=== PATIENT | female | born 1975 | race Caucasian/White ===

== ENCOUNTER 2020-08-26 11:09 | Outpatient (REF) | payer OTHER, SELFPAY ==
--- NOTE | ~2020-08-26 | XR_ITS ---
EXAMINATION: XR LUMBOSACRAL SPINE CLINICAL INFORMATION: Low back pain COMPARISON: None TECHNIQUE: Three views of the lumbosacral spine. FINDINGS: Diminutive 12th ribs. 5 nonrib-bearing lumbar type vertebral bodies are present. Vertebral body and disc heights are maintained. No compression fracture seen. Normal sagittal alignment. There may be mild lower lumbar facet arthropathy. XR/XR lumbar spine 2-3V IMPRESSION: No acute osseous abnormality. Possible mild lower lumbar facet arthropathy.
== END 2020-08-26 11:10 | disposition home or self-care (01) ==
LOC: HO.XRAY 11:09
PROVIDERS: PCP Internal Medicine; Visit Provider Physician Assistant
DX: M54.5 Low back pain (principal)
CPT/HCPCS: 72100

== ENCOUNTER 2020-09-12 08:28 | Outpatient (REF) | payer OTHER, SELFPAY ==
--- NOTE | ~2020-09-12 | CT_ITS ---
EXAMINATION: CT LUMBAR SPINE WITHOUT CONTRAST CLINICAL INFORMATION: 45-year-old with low back pain. COMPARISON: None TECHNIQUE: Volumetric CT of the lumbar spine was done from T12 to the sacrum with multiplanar reformatted reconstructions. This CT examination was performed using dose optimization techniques as appropriate, variously including the following: *Automated exposure control *Adjustment of mA and/or kV according to patient size (this includes techniques or standardized protocols for targeted exams where dose is matched to indication/reason for exam; i.e. extremities or head) *Use of iterative reconstruction technique DLP; 465.00 mGy-cm FINDINGS: Slight lower lumbar levocurvature noted. Otherwise, the lumbosacral spine is anatomically aligned. Vertebral body heights are well-maintained. There is no spondylolisthesis or spondylolysis. No fractures or aggressive bone lesions are identified. Incidental note is made of a 3 cm benign vertebral hemangioma within the L2 vertebral body. L5-S1: Moderate to marked loss of disc space height is noted with intradiscal vacuum disc phenomenon consistent with discogenic degenerative change. There is mild diffuse disc bulging with minor paravertebral spondylosis with slight flattening of the dural sac. There is minor bilateral facet arthrosis and there is mild bilateral foraminal stenosis without neural impingement and no significant canal stenosis. L4-L5: Intervertebral disc space height is well maintained with mild diffuse disc bulging and minor paravertebral spondylosis. There is mild flattening of the dural sac slightly asymmetric to the left with a possible superimposed small left subarticular disc protrusion with mild narrowing of the left subarticular zone without significant central spinal canal stenosis. No significant neural foraminal stenosis. L3-L4: Slight loss of Intervertebral disc space height is noted with small Schmorl's nodes noted centrally with no significant disc bulge or herniation. There is minor paravertebral spondylosis without significant facet arthrosis, canal or neuroforaminal stenosis. L2-L3: Intervertebral disc space height is well maintained with minimal disc bulging with minor paravertebral spondylosis with no significant facet arthrosis, canal or neuroforaminal stenosis. L1-L2: Disc space height is well maintained with no significant disc bulge or herniation and no significant spondylosis, facet arthrosis, canal or neuroforaminal stenosis. T12-L1: Disc space height is well maintained with minor anterior marginal endplate spurring with no significant disc bulge or herniation and no significant facet arthrosis, canal or neural foraminal stenosis. Paraspinal/Retroperitoneal: The paravertebral soft tissues appear unremarkable. CT/CT lumbar spine wo con IMPRESSION: 1. Discogenic degenerative changes primarily at L5-S1 as discussed above, with mild disc bulging and minor facet arthrosis with mild bilateral neural foraminal stenosis, right more the left without significant spinal canal stenosis. 2. Disc bulging and a small left subarticular disc protrusion at L4-L5 with mild narrowing of the left subarticular zone and mild paravertebral spondylosis. 3. Mild disc space height loss at L3-L4 with minor paravertebral spondylosis. Minimal disc bulging at L2-L3.
== END 2020-09-12 08:29 | disposition home or self-care (01) ==
LOC: HO.CT 08:28
PROVIDERS: PCP Physician Assistant; Visit Provider Physician Assistant
DX: M54.5 Low back pain (principal)
CPT/HCPCS: 72131

== ENCOUNTER 2023-01-04 09:49 | Outpatient (REF) | payer OTHER, SELFPAY | END 2023-01-04 09:50 | disposition home or self-care (01) | LOC: HO.LAB 09:49 | PROVIDERS: PCP Physician Assistant; Visit Provider Physician Assistant | DX: J35.8 Other chronic diseases of tonsils and adenoids (principal); R53.83 Other fatigue; Z82.49 Family history of ischemic heart disease and other diseases of the circulatory system | CPT/HCPCS: 36415; 80053; 80061; 82525; 82607; 82746; 83090; 83540; 83735; 83970; 84439; 84443; 85025 ==

== ENCOUNTER 2023-03-03 11:11 | Outpatient (REF) | payer OTHER, SELFPAY ==
[2023-03-03 12:04] LABS: Estimated Average Glucose 105 mg/dL; Hemoglobin A1c % 5.3 % (<6.0)
[2023-03-03 12:50] LABS: Iron 78 mcg/dL (30-160); Percent Iron Saturation 26 % (15-50); Total Iron Binding Capacity 298 mcg/dL (228-428); Unsaturated Iron Binding 220 ug/dL
[2023-03-03 13:15] LABS: Carcinoembryonic Antigen < 1.73 ng/mL; TSH reflex Free T4 1.14 uIU/mL (0.32-4.0); Vitamin D 25-OH Total 67.7 ng/mL (>30)
[2023-03-03 13:18] LABS: Folate 16.5 ng/mL (> or = 4.0); Vitamin B12 460 pg/mL (200-900)
[2023-03-04 09:09] LABS: CA 27.29 67 U/mL (<38)
[2023-03-04 10:08] LABS: Carbohydrate Antigen 19-9 26 U/mL (<34)
[2023-03-04 12:13] LABS: Cancer Antigen 15-3 22 U/mL (<32)
[2023-03-04 15:18] LABS: CA-125 11 U/mL (<35)
[2023-03-04 15:47] LABS: Calcium (PTHI) 10.2 mg/dL (8.6-10.2); PTHI 37 pg/mL (16-77)
== END 2023-03-03 11:12 | disposition home or self-care (01) ==
LOC: HO.LAB 11:11
PROVIDERS: PCP Physician Assistant; Visit Provider Physician Assistant
DX: C50.112 Malignant neoplasm of central portion of left female breast (principal); R53.83 Other fatigue
CPT/HCPCS: 36415; 82306; 82378; 82607; 82746; 83036; 83540; 83970; 84443; 86300; 86301; 86304

== ENCOUNTER 2023-04-02 07:31 | Outpatient (REF) | payer OTHER, SELFPAY ==
--- NOTE | ~2023-04-02 | CT_ITS ---
EXAMINATION: CT HEAD WITHOUT CONTRAST CLINICAL INFORMATION: Headaches. COMPARISON: Prior head CT from 10/20/2014. TECHNIQUE: Contiguous axial imaging was performed from the skullbase to vertex without intravenous administration of contrast. This CT examination was performed using dose optimization techniques as appropriate, variously including the following: *Automated exposure control *Adjustment of mA and/or kV according to patient size (this includes techniques or standardized protocols for targeted exams where dose is matched to indication/reason for exam; i.e. extremities or head) *Use of iterative reconstruction technique DLP: 704 mGy-cm. FINDINGS: There is no evidence of acute intracranial hemorrhage or territorial infarction. No abnormal mass effect or midline shift is seen. Brunson to white matter differentiation is well preserved. No extra-axial fluid collections are identified. The ventricles are normal in size. There is no abnormal attenuation within the brain parenchyma. The osseous structures and soft tissues are normal. The mastoid air cells and visualized portions of the paranasal sinuses are well aerated. CT/CT head/brain wo IV con IMPRESSION: No acute intracranial pathology.
[2023-04-02 08:42] LABS: Rheumatoid Factor < 13.0 IU/mL (<15.0)
[2023-04-02 08:43] LABS: C Reactive Protein 0.24 mg/dL (< or = 0.50); Magnesium 1.9 mg/dL (1.6-2.6); Phosphorus 2.8 mg/dL (2.7-4.5)
[2023-04-02 08:57] LABS: Erythrocyte Sedimentation Rate 16 MM/HR (0-20)
[2023-04-05 15:48] LABS: Cyclic Citrullinated Peptide <16 UNITS
[2023-04-06 01:58] LABS: Calcium, Ionized 5.3 mg/dL (4.7-5.5)
[2023-04-06 13:43] LABS: Anti DNA DS Antibody 1 IU/mL; Antibody to SS-A Antigen <1.0 NEG AI (<1.0 NEG); Antibody to SS-B Antigen <1.0 NEG AI (<1.0 NEG)
[2023-04-06 14:43] LABS: Anti Nuclear Antibody Screen NEGATIVE (NEGATIVE)
== END 2023-04-02 07:32 | disposition home or self-care (01) ==
LOC: HO.CT 07:31
PROVIDERS: PCP Physician Assistant; Visit Provider Physician Assistant
DX: R51.0 Headache with orthostatic component, not elsewhere classified (principal); R53.83 Other fatigue; E83.52 Hypercalcemia
CPT/HCPCS: 36415; 70450; 82330; 83735; 84100; 85652; 86038; 86140; 86200; 86225; 86235; 86431

== ENCOUNTER 2023-04-26 15:12 | Outpatient (REF) | payer OTHER, SELFPAY ==
--- NOTE | ~2023-04-26 | US_ITS ---
EXAMINATION: US PELVIS LIMITED (BLADDER) CLINICAL INFORMATION: Dysuria. COMPARISON: None available. TECHNIQUE: Real-time imaging of the bladder. FINDINGS: BLADDER: Well distended and normal. Bilateral ureteral jets are demonstrated. Prevoid bladder volume is 382 mL. Postvoid bladder volume is 8.3 mL. US/US bladder IMPRESSION: No significant post void residual volume. No discrete focal urinary bladder abnormality.
--- NOTE | ~2023-04-26 | US_ITS ---
EXAMINATION: US THYROID CLINICAL INFORMATION: Nontoxic thyroid nodule. COMPARISON: None available. TECHNIQUE: Linear transducer grayscale and color Doppler examination with attention to the region of the thyroid. FINDINGS: SIZE: Measurements of the thyroid lobes and nodules are given in sagittal, anteroposterior and transverse dimensions respectively. Right Thyroid Lobe: 5.0 x 1.7 x 1.7 cm, volume 7.8 mL. Parenchyma: The gland echotexture is homogeneous. Thyroid vascularity is normal. Left Thyroid Lobe: 4.5 x 1.4 x 1.5 cm, volume 4.9 mL. Parenchyma: The gland echotexture is homogeneous. Thyroid vascularity is normal. Isthmus: 0.4 cm in maximum AP dimension. Estimated total number of nodules greater than or equal to 1 cm: 1. Quantitative Researcher nodules are described as follows: 1. Location: Right superior. Size: 0.5 x 0.2 x 0.5 cm, volume 0.03 mL. Nodule characteristics: Composition: Solid (2). Echogenicity: Hypoechoic (2). Shape: Not taller than wide (0). Margins: Ill-defined (0). Echogenic Foci: None (0). ACR TI-RADS total points: 4 ACR TI-RADS category: 4 2. Location: Left inferior. Size: 1.8 x 1.0 x 1.4 cm, volume 1.3 mL. Nodule characteristics: Composition: Solid (2). Echogenicity: Isoechoic (1). Shape: Not taller than wide (0). Margins: Smooth (0). Echogenic Foci: None (0). ACR TI-RADS total points: 3 ACR TI-RADS category: 3 NODES: No lymphadenopathy is seen in the tissue surrounding the thyroid gland. US/US thyroid IMPRESSION: Normal size, vascularity and echogenicity of the thyroid parenchyma. There is a 1.8 cm TR 3 left lower thyroid nodule; recommend follow-up ultrasound in one year. Additional 0.5 cm TR 4 right upper pole nodule, does not meet size criteria for further evaluation. ACR TI-RADS RECOMMENDATION REFERENCE: Ultrasound-guided fine-needle aspiration, followup ultrasound, no further follow up. * TR1 (0 point) and TR2 (2 points): No FNA or follow up. * TR3 (3 points): FNA if more than or equal to 2.5 cm in maximum dimension, followup ultrasound in 1, 3 and 5 years if 1.5 to 2.4 cm in maximum dimension. * TR4 (4-6 points): FNA if more than or equal to 1.5 cm in maximum dimension, followup ultrasound in 1, 2, 3 and 5 years if 1 to 1.4 cm in maximum dimension. * TR5 (more than or equal to 7 points): FNA if more than or equal to 1 cm in maximum dimension, followup ultrasound every year for 5 years if 0.5 to 0.9 cm in maximum dimension. * TR3, TR4 or TR5 nodules that are below the size threshold for followup receive no follow up.
== END 2023-04-26 15:13 | disposition home or self-care (01) ==
LOC: HO.US 15:12
PROVIDERS: PCP Physician Assistant; Visit Provider Physician Assistant
DX: E04.1 Nontoxic single thyroid nodule (principal); R30.0 Dysuria
CPT/HCPCS: 76536; 76857

== ENCOUNTER 2023-07-29 07:00 | Outpatient (REF) | payer OTHER, SELFPAY ==
[2023-07-29 08:06] LABS: Alanine Aminotransferase 25 U/L (0-31); Albumin Level 4.1 g/dL (3.5-5.0); Alkaline Phosphatase 65 U/L (39-117); Anion Gap 12 (12-20); Aspartate Amino Transferase 25 U/L (5-31); Bilirubin Total 0.6 mg/dL (0.0-1.0); Blood Urea Nitrogen 13 mg/dL (9-16); Calcium 10.1 mg/dL (8.4-10.2); Carbon Dioxide 28 mmol/L (22-29); Chloride 106 mmol/L (96-108); Cholesterol 244 mg/dL (<200); Estimated Glomerular Filt Rate > 60; Glucose Random 96 mg/dL (60-115); HDL Cholesterol 66 mg/dL (>40); LDL Cholesterol Calculated 167 mg/dL (<100); Potassium 3.9 mmol/L (3.3-5.1); Sodium 142 mmol/L (135-145); Total Protein 7.7 g/dL (6.5-8.0); Triglycerides 57 mg/dL (<150)
[2023-07-29 08:28] LABS: Cortisol Random 7.9 ug/dL
[2023-07-29 08:29] LABS: Thyroid Stimulating Hormone 1.08 uIU/mL (0.32-4.0); Vitamin D 25-OH Total 45.5 ng/mL (>30)
[2023-07-30 11:59] LABS: Thyroid Peroxidase Antibodies 1 IU/mL (<9)
[2023-07-30 12:38] LABS: EBV-VCA IgG Ab >750.00 U/mL; EBV-VCA IgM Ab <36.00 U/mL
[2023-07-30 20:04] LABS: Triiodothyronine T3 Free 3.4 pg/mL (2.3-4.2); Triiodothyronine T3 Total 110 ng/dL (76-181)
[2023-08-02 11:03] LABS: Iodine, Serum/Plasma 60 mcg/L (52-109)
[2023-08-04 22:43] LABS: Estrone 15 pg/mL
== END 2023-07-29 07:01 | disposition home or self-care (01) ==
LOC: HO.LAB 07:00
PROVIDERS: Visit Provider Preventive Medicine Public Health & General Preventive Medicine
DX: R78.9 Finding of unspecified substance, not normally found in blood (principal); R53.83 Other fatigue; E78.5 Hyperlipidemia, unspecified; B37.82 Candidal enteritis; C50.919 Malignant neoplasm of unspecified site of unspecified female breast
CPT/HCPCS: 80053; 80061; 82306; 82533; 82679; 83090; 83789; 84443; 84480; 84481; 86376; 86628; 86664; 86665

== ENCOUNTER 2024-06-05 15:23 | Outpatient (REF) | payer OTHER, SELFPAY ==
--- NOTE | ~2024-06-05 | XR_ITS ---
EXAMINATION: XR CHEST CLINICAL INFORMATION: ACUTE BRONCHITIS COMPARISON: None available. TECHNIQUE: 2 views of the chest were obtained. FINDINGS: The cardiac silhouette is normal. There is mild diffuse bronchial wall thickening. There are no areas of consolidation. There are no pleural effusions or pneumothoraces. Multiple surgical clips throughout the chest wall. XR/XR chest 2V IMPRESSION: Bronchial wall thickening may be infectious and/or inflammatory in etiology. Electronically signed by: Lauren Serrato MD 06/05/2024 04:18 PM [facility]
== END 2024-06-05 15:24 | disposition home or self-care (01) ==
LOC: HO.XRAY 15:23
PROVIDERS: PCP Internal Medicine; Visit Provider Physician Assistant
DX: J20.9 Acute bronchitis, unspecified (principal)
CPT/HCPCS: 71046

== ENCOUNTER 2024-06-23 11:24 | Outpatient (REF) | payer OTHER, SELFPAY ==
--- NOTE | ~2024-06-23 | XR_ITS ---
EXAMINATION: XR ANKLE, RIGHT CLINICAL INFORMATION: PAIN IN RIGHT ANKLE AND JOINTS OF RT FOOT COMPARISON: None available. TECHNIQUE: AP, lateral, and mortise views of the right ankle. FINDINGS: No fracture. Alignment is anatomic. No erosions. Joint spaces are maintained. Soft tissues are normal. XR/XR ankle RT min 3V IMPRESSION: Normal right ankle. Electronically signed by: Chris Wing MD 06/25/2024 10:33 AM VERNON
--- OUTSIDE RECORDS SUMMARY | 2024-06-23 11:28 | XMS_ITS | Data Portability ---
Author Organization [facility] Service Address [address] [place] [address] Assessment Encounter Date Assessment Date Assessment LastModified by Organization Details LastModified Time 12/21/2022 12/21/2022 wants mthfr testing done will look into it [email or web address] Not available 12/21/2022 15:23:01 08/03/2023 08/03/2023 Patient agreed and verbally consents to this audio and video Telehealth appt via a secure platform [email or web address] Not available 08/03/2023 14:55:33 Plan of Treatment Reminders Order Date Submit Date Provider Last Modified By Organization Details Last Modified Time Details Appointments None recorded. Lab lipid panel, serum 2022 023 [facility], [address] [place] [address], [address], 3 11:44:09 CMP, serum or plasma 2022 023 [facility], [address] [place] [address], [address], 3 11:44:08 mthfr (methylene tetrahydro folate reductase) mutation, blood/tiss ue 2022 023 [facility], [address] [place] [address], 27[address], 3 11:38:21 copper, red blood cells 2022 023 [facility], [address] [place] [address], [address], 3 11:38:21 magnesium, RBC 2022 023 [facility], [address] [place] [address], [address], 3 15:35:22 PTH (parathyro id hormone), intact + calcium, serum or plasma 2022 023 [facility], [address] [place] [address], [address], 3 11:14:27 TSH + free T4, serum 2022 023 [facility], [address] [place] [address], [address], 3 11:44:09 vitamin B12 + folate, serum or blood 2022 023 [facility], [address] [place] [address], [address], 3 11:20:41 iron + TIBC + ferritin, serum 2022 023 [facility], [address] [place] [address], [address], 3 15:35:23 CBC w/ auto diff 2022 023 [facility], [address] [place] [address], 43[address], 3 15:35:23 homocystei ne, serum or plasma 2022 023 [facility], [address] [place] [address], [address], 3 15:35:22 ca 125, serum 2022 023 [facility], [address] [place] [address], [place], [address], 3 14:00:53 ca 15-3, serum 2022 023 [facility], [address] [place] [address], [address], 3 14:00:53 ca 27-29, serum or plasma 2022 023 [facility], [address] [place] [address], [address], 3 14:00:53 cancer Ag 19-9, serum or plasma 2022 023 [facility], [address] [place] [address], [address], 3 14:00:53 carcinoemb ryonic Ag, quant, serum or plasma 2022 023 [facility], [address] [place] [address], [place], [address], 3 14:00:53 calcium, ionized, blood 2022 023 [facility] Testing, [address], [place], [address], 3 12:06:12 phosphorus , serum or plasma 2022 023 [facility] Testing, [address], [place], [address], 3 17:05:27 magnesium, serum or plasma 2022 023 [facility] Testing, [address], [place], [address], 3 17:05:26 dsDNA Ab, serum 2022 023 [facility], [address], [place], [address], 3 17:00:56 anti-dsdna Ab, serum, reflex confirmati on 2022 023 [facility], [address], [place], [address], 3 17:00:56 ccp (cyclic citrullina gaurav peptide) igg, serum 2022 023 [facility], [address], [place], [address], 3 17:00:56 NGOC + rf (antinucle ar antibodies + rheumatoid factor), quantitati ve, serum 2022 023 [facility], [address], [place], [address], 3 12:17:45 sjogren antibody panel (ssa, ssb, ro, la), serum 2022 023 [facility], [address], [place], [address], 3 17:00:56 ESR (erythrocy te sedimentat ion rate), blood 2022 023 [facility] [address] [facility], [address], [place], [address], 3 17:00:56 C-reactive protein, quantitati ve, serum or plasma 2022 023 [facility] [address] [facility], [address], [place], [address], 3 17:00:56 Referral None recorded. Procedures None recorded. Surgeries None recorded. Imaging MAMMO, diagnostic , digital, bilateral - OUQ 1 o'clock left breast, acute developmen t of breast lump, ordered US as well 2020 021 hrubner Not available 1 08:20:29 US, breast, unilateral - OUQ 1 oclock left breast, mammogram ordered separately 2020 021 [email or web address] Not available 08:18:19 US, bladder 2022 023 [facility] Scheduling, [address] [place], [address], 3 08:47:52 CT, head + brain, w/o contrast 2022 023 [facility], [address] [place], [address], 3 08:47:52 Medication Orders alprazolam 0.5 mg tablet 2020 021 [facility] #2071, [address] [place], [address], 1 10:57:16 chlorhexid ine gluconate 0.12 % mouthwash 2022 023 [email or web address], [address] [place], [address], 3 13:45:03 clindamyci n HCl 300 mg capsule 2022 023 marya [facility], [address] [place], [address], 3 13:34:49 chlorhexid ine gluconate 0.12 % mouthwash 2022 023 [facility]2071, [address] [place], [address], 3 13:46:44 alprazolam 0.5 mg tablet 2022 023 [facility]20[facility], [address] [place], [address], 3 13:45:40 hydroxyzin e HCl 10 mg tablet 2023 024 [facility]2071, [address] [place], [address], 4 13:58:42 alprazolam 0.5 mg tablet 2023 024 [facility]2071, [address] [place], [address], 4 13:58:42 Patient TargetsNo targets recorded. Patient InstructionsNo instructions recorded. Reason for Referral None Reported. Results Created Date Observation Date Name Description Value Unit Range Abnormal Flag Note LastModifiedBy Organization Detail LastModifiedTime 12/17/19 21 12/16/2020 johny STUBBS unila teral No observ ation record ed. [facility] [address] [place], [address], 12/17/2020 09:53:34 12/20/19 21 12/16/2020 MAMMO , madisone devyn, digit al, bilat eral No observ ation record ed. [facility] [address] [place], [address], 12/20/2020 09:00:18 12/21/19 21 12/20/2020 johny fonseca (PROC ) No observ ation record ed. [facility] [address] [facility] [address], [place], [address], 12/20/2020 12:28:01 04/02/20 23 04/02/2023 CT, head + brain , w/o contr ast No observ ation record ed. [facility] (Medical Records) [address] [place], [address], 04/06/2023 11:49:09 04/02/20 23 02/25/2023 CT, abdom en + pelvi s, w/o contr ast No observ ation record ed. [email or web address] [facility] [address], [place], [address], 04/02/2023 16:15:16 04/28/20 23 04/26/2023 US, bladd er No observ ation record ed. [facility] (Medical Records) [address] [place], [address], 04/30/2023 10:09:10 04/28/20 23 04/26/2023 US, thyro id No observ ation record ed. [facility] [address] [place], [address], 2023 16:23:55 06/05/20 24 06/05/2024 XR, chest , 2 view No observ ation record ed. [facility] (Medical Records) [address] [place], [address], 06/06/2024 14:33:42 Result Notes None recorded. 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 PADMAJA HOLDEN [address] [place], [address], [facility] 3 15:18:42 Malignan t tumor of breast 520873711 Active 2022 PADMAJA HOLDEN [address] [place], [address], [facility] 3 15:26:01 Fatigue 26978802 Active 2022 PADMAJA HOLDEN [address] [place], [address], [facility] 3 15:26:53 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 189476253 Active 2022 monitorin g PADMAJA HOLDEN [address] [place], [address], [facility] 3 13:55:30 Panic attack 246295965 Active 2022 PADMAJA HOLDEN [address] [place] [address], [address], [facility] 3 13:46:19 Headache 31516864 Active 2022 PADMAJA HOLDEN [address] [place] [address], [address], [facility] 3 16:40:11 Dysuria 89643042 Active 2022 PADMAJA HOLDEN [address] [place] [address], [address], [facility] 3 16:54:15 Hypercal cemia 38057314 Active 2022 PADMAJA HOLDEN [address] [place] [address], [address], [facility] 3 17:01:09 Thyroid nodule 053346776 Active 2022 PADMAJA HOLDEN [address] [place] [address], [address], [facility] 3 11:50:01 Acute conjunct ivitis 91718607 Active 2023 Felipe Torre DO [address] [place], [address], [facility] 4 10:05:17 Acute bronchit is 49212271 Active 2023 PADMAJA HOLDEN [address] [place], [address], [facility] 4 12:18:06 Acute urinary tract infectio n 865975623 Active 2023 PADMAJA HOLDEN [address] [place], [address], [facility] 4 11:38:44 Pain of right ankle joint 59822617886 180924 Active 2023 PADMAJA HOLDEN [address] [place], [address], [facility] 4 11:02:01 Problem Notes None recorded. Procedures Surgical History None recorded. Imaging Results Imaging Date Name Status LastModified by Organiz ation Details LastModified Time 12/16/2020 US, breast, unilateral completed [facility] [address] [place], [address], 12/17/2020 09:53:34 12/16/2020 MAMMO, screening, digital, bilateral completed [facility] [address] [place], [address], 12/20/2020 09:00:18 12/20/2020 biopsy, breast (PROC) completed [facility] [address], [address], 12/20/2020 12:28:01 04/02/2023 CT, head + brain, w/o contrast completed [facility] (Medical Records) [address] [place], [address], 04/06/2023 11:49:09 02/25/2023 CT, abdomen + pelvis, w[facility] [address] [place] [address], [address], 04/02/2023 16:15:16 04/26/2023 US, bladder completed [facility] (Medical Records) [address] [place], [address], 04/30/2023 10:09:10 04/26/2023 US, thyroid completed davon [facility] (Medical Records) [address] [place], [address], 2023 16:23:55 06/05/2024 XR, chest, 2 view completed [facility]a [facility] (Medical Records) [address] [place], [address], 06/06/2024 14:33:42 Procedure Notes None recorded. Medical Equipment None Reported. Allergies Allergen ID Allergen Name Allergen Category Reaction Reaction Severity Criticality Documentation Date Start Date Code Code System Note Provider Name and Address Organization Details Recorded Time 2657 Medicinal product containin g penicilli n and acting as antibacte rial agent (product) medicatio n Not available Not available Not available 07/11/2018 49361 05 SNOMED Kesha Abner jones [facility] 9 13:59:31 7294 clindamyc in Not available myalgias (muscle pain) Not available Not available 03/23/2023 2582 RxNorm Jacob jones [facility] 3 16:33:21 Medications Name Sig Start Date Stop Date Status Note LastModified by Organization Details LastModified Time anastrozole 1 mg tablet 01/13 completed Not Available Not Available Not Available clindamycin HCl 300 mg capsule TAKE 1 CAPSULE BY MOUTH EVERY 6 HOURS FOR 7 DAYS 01/13 completed Not Available Not Available Not Available Zithromax Z-Trip 250 mg tablet TAKE 2 TABLETS (500 MG) BY ORAL ROUTE ONCE DAILY FOR 1 DAY THEN 1 TABLET (250 MG) BY ORAL ROUTE ONCE DAILY FOR 4 DAYS 2023 active Not Available Not Available Not Avai lable ciprofloxac in 500 mg tablet Take 1 tablet every 12 hours by oral route for 10 days. active Not Available Not Available No t Available triamcinolo ne acetonide 0.1 % topical cream APPLY TO AFFECTED AREA TOPICALLY TWICE A DAY 01/13 completed Not Available Not Available Not Available lidocaine-p rilocaine 2.5 %-2.5 % topical cream APPLY TOPICALLY ONCE FOR 1 DOSE. 01/13 completed Not Available Not Available Not Available alprazolam 0.5 mg tablet TAKE 1 TABLET BY MOUTH THREE TIMES A DAY NEEDED FOR 30 DAYS active Not Available Not Available No t Available lorazepam 0.5 mg tablet TAKE 1 TABLET BY MOUTH EVERY DAY NEEDED NEEDS OFFICE VISIT 11/22 completed Not Available Not Available Not Available neomycin-po lymyxin-dex ameth 3.5 mg/mL-10,00 0 unit/mL-0.1 % eye drops INSTILL 1 DROP INTO AFFECTED EYE(S) BY OPHTHALMI C ROUTE EVERY 3-4 HOURS active Not Available Not Available No t Available fluoxetine 10 mg capsule TAKE 1 CAPSULE BY MOUTH EVERY DAY 01/13 completed Not Available Not Available Not Available diclofenac sodium 75 mg tablet,rissa yed release TAKE 1 TABLET TWICE A DAY BY ORAL ROUTE WITH MEALS FOR 15 DAYS. 11/22 completed Not Available Not Available Not Available letrozole 2.5 mg tablet TAKE 1 TABLET BY MOUTH EVERY DAY 01/13 completed Not Available Not Available Not Available hydroxyzine HCl 10 mg tablet TAKE 1 TABLET 3 TIMES A DAY BY ORAL ROUTE NEEDED FOR 30 DAYS, FOR PANIC ATTACK. 2023 active Not Available Not Available Not Avai lable oxycodone 5 mg tablet TAKE 1 TAB BY MOUTH EVERY 6 HOURS NEEDED MAY REQUEST PARTIAL FILL. DO NOT DRIVE OR DRINK ALCOHOL 01/13 completed Not Available Not Available Not Available chlorhexidi ne gluconate 0.12 % mouthwash Place 15 mL twice a day by mucous membrane route as needed. 2022 active Not Available Not Available Not Avai lable Motrin 08/26 completed Not Available Not Available Not Available sodium fluoride 1.1 % dental paste BRUSH YOUR TEETH 4 TIMES A DAY USING TOOTHPAST E 11/22 completed Not Available Not Available Not Available Eliquis 5 mg tablet TAKE 1 TABLET BY MOUTH TWICE A DAY 01/13 completed Not Available Not Available Not Available Vitals Date Recorded Body height Body mass index (BMI) Body weight Oxygen saturation Oxygen saturation in Arterial blood by Pulse oximetry Heart rate Systolic blood pressure Diastolic blood pressure Provider Name and Address Organization Details Last Updated DateTime 1 167.64 cm 28.9 kg/m2 02499.0 3 g 98 % 98 % 62 /min 120 mm[Hg] 72 mm[Hg] Madison Adkinsrich [facility] 1 10:41:58 Date Recorded Body height Body mass index (BMI) Body weight Heart rate Oxygen saturation Oxygen saturation in Arterial blood by Pulse oximetry Systolic blood pressure Diastolic blood pressure Provider Name and Address Organization Details Last Updated DateTime 3 167.64 cm 28.9 kg/m2 99344.0 3 g 66 /min 99 % 99 % 124 mm[Hg] 72 mm[Hg] Diane Sly [facility] 3 14:57:36 Date Recorded Body height Body mass index (BMI) Body weight Heart rate Oxygen saturation Oxygen saturation in Arterial blood by Pulse oximetry Systolic blood pressure Diastolic blood pressure Provider Name and Address Organization Details Last Updated DateTime 3 167.64 cm 25.8 kg/m2 07811.7 8 g 68 /min 99 % 99 % 128 mm[Hg] 68 mm[Hg] [facility] 3 13:37:23 Date Recorded Body height Body mass index (BMI) Body weight Heart rate Oxygen saturation Oxygen saturation in Arterial blood by Pulse oximetry Systolic blood pressure Diastolic blood pressure Provider Name and Address Organization Details Last Updated DateTime 3 167.64 cm 26.8 kg/m2 61318.3 3 g 66 /min 98 % 98 % 105 mm[Hg] 68 mm[Hg] Alyssa James [facility] 3 16:35:26 Social History Question Answer Notes LastModified by Organizat ion Details LastModified Time Tobacco Smoking Status Never Smoker Not Available [employer] 05/07/2020 03:36:23 What Was The Date Of Your Most Recent Tobacco Screening? 03/23/2023 [email or web address] Information not available 03/23/2023 Sex: Unknown Functional Status None recorded. Mental Status None recorded. Family History Relationship Description Onset Age of this Age Resolved Age Notes LastModified by Organization Details LastModified Time Mother Type 2 diabetes mellitus [email or web address] Not available 10/09 15:39:58 Mother Carotid atherosclero sis [email or web address] Not available 10/09 15:40:10 Mother Cerebrovascu lar accident [email or web address] Not available 15:40:31 Mother Myocardial infarction 56 [email or web address] Not available 01/2020 15:41:53 Mother Deep venous thrombosis [email or web address] Not available 01/2020 15:42:51 Maternal Aunt Myocardial infarction 56 [email or web address] Not available 01/2020 15:42:05 Father Pulmonary embolism [email or web address] Not available 10/09 15:42:30 Medical History No medical history recorded. Gynecological History Statement/Question Response Date of LMP Obstetrics History GPAL:G 0 P 0 0 0 0 Immunizations Vaccine Type Date Status Note Provider Nam e and Address Organization Details Recorded Time Tdap 07/05/2016 completed Not Available [employer] 08/04/2023 12:48:09 Past Encounters Encounter ID Performer Location Encounter Start Date Encounter Closed Date Diagnosis/Indication Diagnosis SNOMED-CT Code Diagnosis ICD10 Code [id number] Lillie Block NP, S [facility] [address] [facility] [place] [address] 07/11/2018 13:54:30 07/11/2018 16:11:50 Chest pain 41300815 R07.9 [id number] [facility] [address] [facility] [place] [address] 07/17/2019 11:24:59 07/17/2019 11:56:45 Anxiety 85283810 F41.9 Depressive disorder 3548 9007 F32.9 Adult [facility] th examination 243431858 Z00.00 Deficiency of vitamin D3 610575311 E55.9 [id number] Rachel [facility] [address] [facility] [place] [address] 10/10/2019 15:30:01 10/10/2019 16:17:24 Adult health examination 828265087 Z00.00 Family his tory of blood coagulation disorder 4619063949 93231 Z83.2 Menopausal syndrome 1237 68287 N95.9 Anxiety 71703104 F41.9 [id number] PADMAJA HOLDEN [facility] [address] [place] [address],[place] [address] 11/28/2019 08:12:43 11/28/2019 11:12:39 Headache 30598418 R51 Cough 50318844 R05 Tight chest 01728535 R07 .89 Dyspnea on exertion 6084 5006 R06.09 [id number] PADMAJA HOLDEN [facility] [address] [place] [address],[place] [address] 08/26/2020 09:47:24 08/26/2020 14:34:49 Low back pain 562291724 M54.5 [id number] [facility] [address] [place] [address],[address] [facility] [place] [address] 11/22/2020 10:33:15 11/22/2020 13:50:48 Mass of left breast 5313545583 4166430 N63.21 Panic attack 410516779 F 41.0 [id number] PADMAJA HOLDEN [facility] [address] [place] [address],[place] [address] 12/21/2022 14:42:44 12/21/2022 16:07:08 Acute tonsillitis 09941393 J03.01 Amygdalolith 6175401 J35 .8 Malignant tumor of breast 453438335 C50.112 Fatigue 84322171 R53.83 Family his tory of Cardiovascular disease 580399720 Z82.49 [id number] PADMAJA HOLDEN [facility] [address] [place] [address],[place] [address] 01/13/2023 13:29:46 01/13/2023 15:57:28 Active or passive immunization 384113252 Z23 Adult [facility] th examination 595065710 Z00.00 Panic attack 062932461 F 41.0 Amygdalolith 3176935 J35 .8 Malignant tumor of breast 137494497 C50.112 [id number] PADMAJA HOLDEN [facility] [address] [place] [address],[place] [address] 03/23/2023 16:09:54 03/24/2023 09:27:35 Malignant tumor of breast 923632030 C50.112 Headache 17878475 R51.0 Fatigue 87519528 R53.83 Dysuria 98476423 R30.0 Hypercalcemia 26038954 E 83.52 [id number] PADMAJA HOLDEN [facility] [address] [facility],[place] [address] 08/03/2023 12:11:38 08/03/2023 16:35:19 Panic attack 050316162 F41.0 Malignant tumor of breast 037623003 C50.112 Health Concerns Section Related Observation LastModified by Organization Detai ls LastModified Time None Recorded Concern Status LastModified by Organization Details LastModified Time None Recorded Advance Directives Directive None Recorded Payers Encounter Date Sequence Insurance Name Policy Number Policy Gonzales Covered Member ID Gonzales Member ID Guarantor Name 11/22/2020 1 [facility] [employer] [id number] 1 María Holloway Kimo [id number] María Kimo 12/21/2022 1 [facility] [employer] [id number] 1 María Holloway Kimo [id number] María Kimo 01/13/2023 1 [facility] [employer] [id number] 1 María Holloway Kimo [id number] María Kimo 03/23/2023 1 [facility] [employer] [id number] 1 María Holloway Kimo [id number] María Kimo 08/03/2023 1 [facility] [employer] [id number] 1 María Holloway Kimo [id number] María Rolonndell Notes Date Note Type Note Provider Name a ks Address Organization Details Recorded Time text/html Breast MassReported bypatient.Location:le ft; upper outer quadrant Onset/Timin-7 days Quality:size 1.5 cm; asymptomatic Context:performs breast self examination; 0 prior biopsies; history of estrogen use Associated Symptoms:no fever; no skin redness; no nipple discharge; no breast swelling; no arm pain; no arm swelling; no chest pain FU left breast mass PADMAJA HOLDEN [address] [place], [address], [facility] 11/22/2020 11:02:55 3 text/html c/o tonsil stones the patient reports she has been producing more tonsil stones since going through chemo possible complication post chemo which has been known to happenoral hygiene is excellent, nothing thereno other exogenous sources of calcium already needed BW for her fu appt and suggestions from specialistsalso want to check her parathryoid and see if that is causing the issues pt agrees to planwill see her soon for regular fu PADMAJA HOLDEN [address] [place], [address], [facility] 12/21/2022 15:34:01 3 text/html Annual WellnessReported bypatient.Diet and Nutrition:healthy diet; discussed vitamin and supplement use; discussed portion control; discussed maintaining calcium balance; discussed diet improvement Fracture Risk:no history of fractures; no recent explained fracture; no sudden unexplained fractures; no previous musculoskeletal injuries Physical Activity:exercises on a regular basis; recent increase in physical activity; good physical condition Depression Risk:never feels sad, empty, or tearful; no loss of interest in activities; no significant changes in weight; no sleep disturbances or insomnia; no agitation; no loss of energy; no feelings of worthlessness or guilt; no thoughts of suicide; no history of depression; no history of mood disorders Hearing:no loss of hearing Vision:no vision problems PADMAJA HOLDEN [address] [place], [address], [facility] 01/13/2023 14:11:03 3 text/html f/u lab work reviewed the lab work with the patient discussed stopping the tincturescould be causing dehydrationalso suggested adding electrolytes to her diet as well but will also need more bw to determine if the urinary issues, fatigue, excess calcium is being cause by complications from her chemo or an autoimmune disorder that developed due to chemo rechecking her calcium also doing an US bladder since it can check the uteter jets and flow of urine agreed to CT head, was not checked with PET scan and she has been having more headaches recentlycould be related to dehydration PADMAJA HOLDEN [address] [place], [address], [facility] 03/24/2023 09:21:12 4 text/html c/o anxiety The patient is participating in this appointment via telemedicine communication with a phone call/video calling service (Converser)The patient consents to use of these platforms in place of an in-person appointment due to either sick symptoms the patient is presenting with or current office closure due to COVID exposure in order to keep our office staff and patients safe the patient is having increased anxietythe patient has been on light duty, the patient reports that work is trying to take her off light dutythe patient reports that she is still actively getting treatments due to her breast cancer, getting bone infusions (patient is on zometa infections) every 6 mos still currently treat with anastrozole as well for the breast cancer note written for lowell piña paperwork for patient adjusted medications, will let me know how it is doing PADMAJA HOLDEN [address] [place], [address], [facility] 08/03/2023 14:55:50 OBGyn Episode No OBEpisode recorded.
== END 2024-06-23 11:25 | disposition home or self-care (01) ==
LOC: HO.XRAY 11:24
PROVIDERS: PCP Physician Assistant; Visit Provider Physician Assistant
DX: M25.571 Pain in right ankle and joints of right foot (principal)
CPT/HCPCS: 73610

== ENCOUNTER 2024-10-19 16:41 | Outpatient (REF) | payer OTHER, SELFPAY ==
--- OUTSIDE RECORDS SUMMARY | 2024-10-19 18:26 | XMS_ITS | Data Portability ---
Author Organization [facility], Home Service Address [address] [place] [address] Assessment Encounter Date Assessment Date Assessment LastModified by Organization Details LastModified Time 12/21/2022 12/21/2022 wants mthfr testing done will look into it [email or web address] Not available 12/21/2022 15:23:01 08/03/2023 08/03/2023 Patient agreed and verbally consents to this audio and video Telehealth appt via a secure platform [email or web address] Not available 08/03/2023 14:55:33 06/30/2024 06/30/2024 Patient agreed and verbally consents to this audio and video Telehealth appt via a secure platform [email or web address] Not available 06/30/2024 14:21:01 Plan of Treatment Reminders Order Date Submit Date Provider Last Modified By Organization Details Last Modified Time Details Appointments NEW PROBLEM 15 2024 03:45P M PADMAJA HOLDEN Not available Not available Not available [facility], ionized, [facility] [address] [place] [facility] [place], [address], 04/06/2023 12:06:12 phosphoru s, serum or plasma 2022 023 [facility], [address], [place], [address], 03/23/2023 17:05:27 magnesium , serum or plasma [facility] [address] , [place], [address], 03/23/2023 17:05:26 dsDNA Ab, serum 2022 023 [place] [address] Testing, [address], [place], [address], 03/23/2023 17:00:56 anti-dsdn a Ab, serum, reflex confirmat ion 2022 023 [facility], [address] [place], [address], 03/23/2023 17:00:56 ccp (cyclic citrullin ated peptide) igg, serum 2022 023 [place] [address] Testing, [address] [place], [address], 03/23/2023 17:00:56 NGOC + rf (antinucl ear antibodie s + rheumatoi d factor), quantitat steve, serum 2022 023 [place] [address] Testing, [address] [place], [address], 04/08/2023 12:17:45 sjogren antibody panel (ssa, ssb, ro, la), serum 2022 023 [place] [address] Testing, [address] [place], [address], 03/23/2023 17:00:56 ESR (erythroc yte sedimenta tion rate), blood 2022 023 [place] [address] Testing, [address] [place], [address], 03/23/2023 17:00:56 C-reactiv e protein, quantitat steve, serum or plasma 2022 023 [facility], [address] [place], [address], 03/23/2023 17:00:56 ca 125, serum 2022 023 [facility], [address] [place] [address], [address], 01/13/2023 14:00:53 ca 15-3, serum 2022 023 [facility], [address] [place] [address], [address], 01/13/2023 14:00:53 ca 27-29, serum or plasma 2022 023 [facility], [address] [place] [address], [address], 01/13/2023 14:00:53 cancer Ag 19-9, serum or plasma 2022 023 [facility], [address] [place] [address], [address], 01/13/2023 14:00:53 carcinoem bryonic Ag, quant, serum or plasma 2022 023 [facility], [address] [place] [address], [address], 01/13/2023 14:00:53 lipid panel, serum 2022 023 [facility], [address] [place] [address], [address], 01/04/2023 11:44:09 CMP, serum or plasma 2022 023 [facility], [address] [place] [address], [address], 01/04/2023 11:44:08 mthfr (methylen etetrahyd rofolate reductase ) mutation, blood/tis camden 2022 023 [facility], [address] [place] [address], [address], 01/11/2023 11:38:21 copper, red blood cells 2022 023 [facility], [address] [place] [address], [address], 01/11/2023 11:38:21 magnesium , RBC 2022 023 [facility], [address] [place] [address], [address], 12/21/2022 15:35:22 PTH (parathyr oid hormone), intact + calcium, serum or plasma 2022 023 [facility], [address] [place] [address], [address], 01/06/2023 11:14:27 TSH + free T4, serum 2022 023 [facility], [address] [place] [address], [address], 01/04/2023 11:44:09 vitamin B12 + folate, serum or blood 2022 023 [facility], [address] [place] [address], [address], 01/05/2023 11:20:41 iron + TIBC + ferritin, serum 2022 023 [facility], [address] [place] [address], [address], 12/21/2022 15:35:23 CBC w/ auto diff 2022 023 [facility], [address] [place] [address], [address], 12/21/2022 15:35:23 homocyste ine, serum or plasma 2022 023 [facility], [address] [place], [address], 12/21/2022 15:35:22 Referral None recorded. Procedures None recorded. Surgeries None recorded. Imaging US, bladder 2022 023 [facility], [address] [place], [address], 03/26/2023 08:47:52 CT, head + brain, w/o contrast 2022 023 [facility], [address] [place], [address], 03/26/2023 08:47:52 Medication Orders hydroxyzi ne HCl 10 mg tablet 2023 024 [facility]acy #[id number], [address] [place], [address], 08/03/2023 13:58:42 alprazola m 0.5 mg tablet 2023 024 [facility] #[id number], [address] [place], [address], 08/03/2023 13:58:42 chlorhexi dine gluconate 0.12 % mouthwash 2022 023 [facility] #2071, [address] [place], [address], 01/13/2023 13:46:44 alprazola m 0.5 mg tablet 2022 023 [facility] #[id number], [address] [place], [address], 01/13/2023 13:45:40 chlorhexi dine gluconate 0.12 % mouthwash 2022 023 [email or web address] [facility]armacy #[id number], [address] [place], [address], 01/13/2023 13:45:03 clindamyc in HCl 300 mg capsule [email or web address]/Pharmacy #[id number], [address] [place], [address], 01/13/2023 13:34:49 Patient TargetsNo targets recorded. Patient InstructionsNo instructions recorded. Reason for Referral None Reported. Results Created Date Observation Date Name Description Value Unit Range Abnormal Flag Note LastModifiedBy Organization Detail LastModifiedTime 04/02/20 23 04/02/2023 CT, head + brain , w/o contr ast No observ ation record ed. [facility] (Medical Records) [address] [place] [address], [address], 04/06/2023 11:49:09 04/02/20 23 02/25/2023 CT, abdom en + pelvi s, w/o contr ast No observ ation record ed. [facility] [address], [address], 04/02/2023 16:15:16 04/28/20 23 04/26/2023 US, bladd er No observ ation record ed. [facility] (Medical Records) [address] [place] [address], [address], 04/30/2023 10:09:10 04/28/20 23 04/26/2023 US, thyro id No observ ation record ed. [facility] (Medical Records) [address] [place], [address], 2023 16:23:55 06/05/20 24 06/05/2024 XR, chest , 2 view No observ ation record ed. [email or web address] (Medical Records) [address] [place], [address], 06/06/2024 14:33:42 06/25/20 24 06/23/2024 XR, ankle , 3 or more view No observ ation record ed. [facility] (Medical Records) [address] [facility], [place], [address], 06/30/2024 10:12:20 Result Notes None recorded. 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 PADMAJA HOLDEN [address] [place], [address], [facility] 3 15:18:42 Malignan t tumor of breast 303698468 Active 2022 PADMAJA HOLDEN [address] [place], [address], [facility] 3 15:26:01 Fatigue 39114116 Active 2022 PADMAJA HOLDEN [address] [place], [address], [facility] 3 15:26:53 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 830594152 Active 2022 monitorin g PADMAJA HOLDEN [address] [place], [address], [facility] 3 13:55:30 Panic attack 055961312 Active 2022 PADMAJA HOLDEN [address] [place], [address], [facility] 3 13:46:19 Headache 25153351 Active 2022 PADMAJA HOLDEN [address] [place], [address], [facility] 3 16:40:11 Dysuria 67538717 Active 2022 PADMAJA HOLDEN [address] [place], [address], [facility] 3 16:54:15 Hypercal cemia 99018885 Active 2022 PADMAJA HOLDEN [address] [place], [address], [facility] 3 17:01:09 Thyroid nodule 043284434 Active 2022 PADMAJA HOLDEN [address] [place] [address], [address], [facility] 3 11:50:01 Acute conjunct ivitis 31931918 Active 2023 Felipe Torre DO [address] [place] [address], [address], [facility] 4 10:05:17 Acute bronchit is 13074319 Active 2023 PADMAJA HOLDEN [address] [place] [address], [address], [facility] 4 12:18:06 Acute urinary tract infectio n 951757403 Active 2023 PADMAJA HOLDEN [address] [place] [address], [address], [facility] 4 11:38:44 Pain of right ankle joint 08174028496 888112 Active 2023 PADMAJA HOLDEN [address] [place] [address], [address], [facility] 4 11:02:01 Sprain of right ankle 69335413885 254480 Active 2023 PADMAJA HOLDEN [address] [place] [address], [address], [facility] 4 14:20:29 Cough 56752729 Active 2024 PADMAJA HOLDEN [address] [place], [address], [facility] 5 10:51:38 Problem Notes None recorded. Procedures Surgical History None recorded. Imaging Results Imaging Date Name Status LastModified by Organiz ation Details LastModified Time 04/02/2023 CT, head + brain, w/o contrast completed [facility] (Medical Records) [address] [place], [address], 04/06/2023 11:49:09 02/25/2023 CT, abdomen + pelvis, w/o contrast completed [facility] [address] [place] [address], [address], 04/02/2023 16:15:16 04/26/2023 US, bladder completed [facility] (Medical Records) [address] [place], [address], 04/30/2023 10:09:10 04/26/2023 US, thyroid completed [facility] (Medical Records) [address] [place], [address], 2023 16:23:55 06/05/2024 XR, chest, 2 view completed [email or web address] (Medical Records) [address] [place], [address], 06/06/2024 14:33:42 06/23/2024 XR, ankle, 3 or more view completed [facility] (Medical Records) [address] [place], [address], 06/30/2024 10:12:20 Procedure Notes None recorded. Medical Equipment None Reported. Allergies Allergen ID Allergen Name Allergen Category Reaction Reaction Severity Criticality Documentation Date Start Date Code Code System Note Provider Name and Address Organization Details Recorded Time 2777 Product containin g penicilli n (product) medicatio n Not available Not available Not available 07/11/2018 88921 8001 SNOMED Kesha Levine robert [facility] 9 13:59:31 7294 clindamyc in Not available myalgias (muscle pain) Not available Not available 03/23/2023 2582 RxNorm sa James robert [facility] 3 16:33:21 Medications Name Sig Start Date Stop Date Status Note LastModified by Organization Details LastModified Time anastrozole 1 mg tablet 01/13 completed Not Available Not Available Not Available clindamycin HCl 300 mg capsule TAKE 1 CAPSULE BY MOUTH EVERY 6 HOURS FOR 7 DAYS 01/13 completed Not Available Not Available Not Available azithromyci n 250 mg tablet 07/11 completed Not Available Not Available Not Available ciprofloxac in 500 mg tablet Take 1 tablet every 12 hours by oral route for 10 days. 07/11 completed Not Available Not Available Not Available sulfamethox azole 800 mg-trimetho prim 160 mg tablet TAKE 1 TABLET BY MOUTH EVERY 12 HOURS FOR 7 DAYS active Not Available Not Available No [...] completed Not Available Not Available Not Available albuterol sulfate HFA 90 mcg/actuati on aerosol inhaler Inhale 2 puffs every 4 hours by inhalatio n route for 30 days. 2024 active Not Available Not Available Not Avai lable hydroxyzine HCl 10 mg tablet TAKE 1 [...] Updated DateTime 3 167.64 cm 28.9 kg/m2 20187.0 3 g 66 /min 99 % 99 % 124 mm[Hg] 72 mm[Hg] Diane Heart [facility] 3 14:57:36 Date Recorded Body height Body mass index (BMI) Body weight Heart rate Oxygen saturation Oxygen saturation in Arterial blood by Pulse oximetry Systolic blood pressure Diastolic blood pressure Provider Name and Address Organization Details Last Updated DateTime 3 167.64 cm 25.8 kg/m2 95785.7 8 g 68 /min 99 % 99 % 128 mm[Hg] 68 mm[Hg] Diane Heart [facility] 3 13:37:23 Date Recorded Body height Body mass index (BMI) Body weight Heart rate Oxygen saturation Oxygen saturation in Arterial blood by Pulse oximetry Systolic blood pressure Diastolic blood pressure Provider Name and Address Organization Details Last Updated DateTime 3 167.64 cm 26.8 kg/m2 20697.3 3 g 66 /min 98 % 98 % 105 mm[Hg] 68 mm[Hg] Jacob [facility] 3 16:35:26 Social History Question Answer Notes LastModified by Organizat ion Details LastModified Time Tobacco Smoking Status Never Smoker Not Available [facility] 05/07/2020 03:36:23 What Was The Date Of [...] Recorded Time Tdap 07/05/2016 completed Not Available [facility] 08/04/2023 12:48:09 Past Encounters Encounter ID Performer Location Encounter Start Date Encounter Closed Date Diagnosis/Indication Diagnosis SNOMED-CT Code Diagnosis ICD10 Code Diagnosis Note [id number] Lillie Block NP, S [facility] [address] [facility],[place] [address] 07/11/2018 13:54:30 07/11/2018 16:11:50 Chest pain 67222806 R07.9 [id number] Rachel Jackson [facility] [address] [facility] [address] 07/17/2019 11:24:59 07/17/2019 11:56:45 Anxiety 14521001 F41.9 Depressive disorder 3548 9007 F32.9 Adult heal th examination 721834258 Z00.00 Deficiency of vitamin D3 129127315 E55.9 [id number] Rachel Jackson [facility] [address] [facility] [address] 10/10/2019 15:30:01 10/10/2019 16:17:24 Adult health examination 083584444 Z00.00 Family his tory of blood coagulation disorder 2936884138 16777 Z83.2 Menopausal syndrome 1237 17349 N95.9 taking vitamin d Anxiety 85171899 F41.9 feels stable needs refill on the [facility] [id number] PADMAJA HOLDEN [facility] [address] [facility] [address] 11/28/2019 08:12:43 11/28/2019 11:12:39 Headache 46078164 R51 the patient was tested negative once early in her her sickness states she is still symptomati c and continues to have symptoms including worsening sob, cough, and chest pressure will retest her for COVID to see if it comes back negative the get chest XR to see if possible pna vs viral bronchitis Cough 96436080 R05 as above Tight chest 48913853 R07 .89 as above Dyspnea on exertion 6084 5006 R06.09 as above [id number] PADMAJA HOLDEN [facility] [address] [facility] [address] 08/26/2020 09:47:24 08/26/2020 14:34:49 Low back pain 999420943 M54.5 will start with pain medication and XR [id number] [facility] [address] [facility] [address] 11/22/2020 10:33:15 11/22/2020 13:50:48 Mass of left breast 0456769518 4282248 N63.21 sent in order STAT Panic attack 123247282 F 41.0 will start on xanax given her increased anxiety over the breast lump, the patient is having a panic attack and not sleeping [id number] PADMAJA HOLDEN [facility] [address] [facility] [address],[place] [address] 12/21/2022 14:42:44 12/21/2022 16:07:08 Acute tonsillitis 14597166 J03.01 will start clindamyci n presentati on of infectionu se mouth wash as well Amygdalolith 9118570 J35 .8 will start on oral antibiotic s and mouthwash Malignant tumor of breast 703916847 C50.112 recommende d by her specialist for testing Fatigue 79341089 R53.83 agreed to full work up Family his tory of Cardiovascular disease 312561142 Z82.49 agreed to screening [id number] PADMAJA HOLDEN [facility] [address] [facility] [address] 01/13/2023 13:29:46 01/13/2023 15:57:28 Active or passive immunization 944937019 Z23 up-to-date Adult heal th examination 966078787 Z00.00 BP is excellent Panic attack 388591440 F 41.0 needs refill Amygdalolith 6215176 J35 .8 will send out Malignant tumor of breast 445887833 C50.112 recommende d by her specialist for testing [id number] PADMAJA HOLDEN [facility] [address] [facility] [address] 03/23/2023 16:09:54 03/24/2023 09:27:35 Malignant tumor of breast 641795221 C50.112 recommende d by her specialist for testing Headache 51993442 R51.[address] Fatigue 63047389 R53.83 will set up with lab work Dysuria 70809900 R30.0 will set up with bladder US as well for continued foam in her urine Hypercalcemia 43662661 E 83.52 will recheck levels for patient [id number] PADMAJA HOLDEN [facility] [address] [facility] [address] [address] 08/03/2023 12:11:38 08/03/2023 16:35:19 Panic attack 939281068 F41.0 needs refill Malignant tumor of breast 935867265 C50.112 recommende d by her specialist for testing [id number] PADMAJA HOLDEN [facility] [address] [facility] [address] [address] 06/30/2024 09:39:41 06/30/2024 14:29:52 Pain of right ankle joint 8600474367 0897649 M25.571 improving Sprain of right ankle 11 03970398 3613880 S93.431A improving Health Concerns Section Related Observation LastModified by Organization Detai ls LastModified Time None Recorded Concern Status LastModified by Organization Details LastModified Time None Recorded Advance Directives Directive None Recorded Payers Encounter Date Sequence Insurance Name Policy Number Policy Gonzales Covered Member ID Gonzales Member ID Guarantor Name 12/21/2022 1 [employer] [id number] 1 María Holloway Kimo [id number] María Kimo 01/13/2023 1 [employer] [id number] 1 María Holloway Kimo [id number] María Kimo 03/23/2023 1 [employer] [id number] 1 María Holloway Kimo [id number] María Kimo 08/03/2023 1 [employer] [id number] 1 María Holloway Kimo [id number] María Kimo 06/30/2024 1 [employer] [id number] 1 María Rolonndell [id number] María Rolonndell Notes Date Note Type Note Provider Name a nd Address Organization Details Recorded Time 3 text/html c/o tonsil stones the patient [...] soon for regular fu PADMAJA HOLDEN [address] [place], [address], [facility] 12/21/2022 15:34:01 3 text/html Annual WellnessReported bypatient.Diet [...] hearing Vision:no vision problems PADMAJA HOLDEN [address] [place], [address], [facility] 01/13/2023 14:11:03 3 text/html f/u [...] be related to dehydration PADMAJA HOLDEN [address] [place], [address], [facility] 03/24/2023 09:21:12 4 text/html c/o anxiety The patient is participating in this appointment via telemedicine communication with a phone call/video calling service (Doxy)The patient consents to use of these platforms [...] for the breast cancer note written for [facility] paperwork for patient adjusted medications, will let me know how it is doing PADMAJA HOLDEN [address] [place], [address], [facility] 08/03/2023 14:55:50 4 text/html f/u ankle injury R The patient is participating in this appointment via telemedicine communication with a phone call/video calling service (Doxy)The patient consents to use of these platforms in place of an in-person appointment due to either sick symptoms the patient is presenting with or current office closure due to COVID exposure in order to keep our office staff and patients safe the patient did end up falling of the horse, her foot got caught in the stir-up and ended up falling out of the saddle onto her right foot/ankledeveloped contusion/bruising, pain, mild difficulty with walkingprobable moderate sprainis improving everyday and her XRs were negative for an acute fracture will continue to monitor itif it does not improve will consider moving forward with MRI did use crutches for a few days, now just in a brace which is appropriateusing ice, rest, elevation and apap/ibu PRN for pain control given work note to excuse missed work days and have return in the New Year to ensure adequate rest and recovery PADMAJA HOLDEN [address] [place], [address], [facility] 06/30/2024 14:21:35 OBGyn Episode No OBEpisode recorded.
== END 2024-10-19 16:42 | disposition home or self-care (01) ==
LOC: HO.CT 16:41
PROVIDERS: PCP Physician Assistant; Visit Provider Physician Assistant
DX: R05.9 Cough, unspecified (principal)
CPT/HCPCS: 71250

== ENCOUNTER → 2024-10-19 16:59 | Outpatient (BNV) | payer OTHER, SELFPAY | PROVIDERS: PCP Physician Assistant; Visit Provider Radiology Diagnostic Radiology | DX: E04.1 Nontoxic single thyroid nodule (principal); R91.8 Other nonspecific abnormal finding of lung field | CPT/HCPCS: 71250 ==

== ENCOUNTER 2024-11-04 17:04 | Outpatient (REF) | payer OTHER, SELFPAY ==
--- NOTE | ~2024-11-04 | MR_ITS ---
CLINICAL HISTORY: LIVER LESION. --- Additional Notes or Special Instructions: Pt is an EXTREMELY diff icult stick. Will most likely need US guided IV placement for future MRI exams. MR abdomen with and without intravenous contrast Comparison: Chest CT from 10/19/2024. Findings: Multiple peripherally enhancing masses and lesions of the liver are nonspecific by imaging. One measures 3.8 cm in the periphery of the left lobe with mixed T2 signal. Multiple demonstrate peripherally reduced diffusion concerning for hypercellularity. Including 1.8 cm lesion dorsally in the right lobe (image 15 of series 10). Differential considerations include secondary malignant neoplasm of the liver. Nodular hyperplasia considered less likely given enhancement pattern and diffusion signature. Findings of infection and inflammation can have a similar imaging appearance. Gallbladder is unremarkable accounting for artifacts. Mild/borderline adrenal hyperplasia. The spleen is nonenlarged. The pancreas is unremarkable for artifacts. No hydronephrosis or renal mass. Nonenlarged lymphadenopathy of the upper abdomen. No small bowel obstruction in the imaged abdomen. Small right pleural effusion right basilar atelectasis/consolidation. Lung lesion measures a proximally 3 cm by MRI. Please refer to separate report for 10/19/[address] No definite rupture of either partially imaged implant. Mild height loss of the T12 is nonspecific and likely old/chronic. Accentuated by upper endplate Schmorl's node. Additional mixed signal enhancement imaged spine is not further characterized by abdomen imaging. IMPRESSION: 1. Multiple liver lesions concerning for liver metastasis. 2. New small right pleural effusion compared to chest CT from 10/19/2024. 3. Abnormal appearance of the imaged spine. Please consider dedicated spine imaging, if not already achieved. This document has been electronically signed by: Joselo Rice MD on 11/04/2024 19:40:37
--- OUTSIDE RECORDS SUMMARY | 2024-11-04 17:08 | XMS_ITS | Data Portability ---
Author Organization [facility] Home Service Address [address] [place] [address] Assessment Encounter Date Assessment Date Assessment LastModified by Organization Details LastModified Time 08/03/2023 08/03/2023 Patient agreed and verbally consents [...] Modified Time Details Appointments None recorded. Lab calcium, ionized, blood [facility]23 [facility] [address], [place], [address], 3 12:06:12 phosphorus , serum or plasma 2022 023 [facility] [address], [place], [address], 3 17:05:27 magnesium, serum or plasma 2022 023 [facility] Testing, [address], [place], [address], 3 17:05:26 dsDNA Ab, serum 2022 023 [facility], [address], [place], [address], 3 17:00:56 anti-dsdna Ab, serum, reflex confirmati on 2022 023 [facility] [address] , [place], [address], 3 17:00:56 ccp (cyclic citrullina gaurav peptide) igg, serum 2022 023 [facility], [address], [place], [address], 3 17:00:56 NGOC + rf (antinucle ar antibodies + rheumatoid factor), quantitati ve, serum 2022 023 [facility], [address] [place], [address], 3 12:17:45 sjogren antibody panel (ssa, ssb, ro, la), serum 2022 023 [facility] Covid[facility]19 Testing, [address] , [place], [address], 3 17:00:56 ESR (erythrocy te sedimentat ion rate), blood 2022 023 [facility], [address] [place], [address], 3 17:00:56 C-reactive protein, quantitati ve, serum or plasma 2022 023 [facility] [address] [place], [address], 3 17:00:56 Referral physical therapist referral - Results in [facility] [address], [place] [address]. Pt wants PT at this location 2024 025 [facility], [address], [place], [address], 5 09:19:18 Procedures None recorded. Surgeries None recorded. Imaging US, bladder 2022 023 [facility], [address] [place], [address], 3 08:47:52 CT, head + brain, w/o contrast 2022 023 [facility], [address] [place], [address], 3 08:47:52 Medication Orders prednisone 10 mg tablet 2024 025 [email or web address] [id number], [address] [place], [address], 5 16:41:56 hydroxyzin e HCl [address] [id number], [address] [place], [address], 4 13:58:42 alprazolam 0.[address] [id number], [address] [place], [address], 4 13:58:42 Patient TargetsNo targets recorded. Patient InstructionsNo instructions recorded. Reason for Referral Physical Therapist Referral for Acute back pain with sciatica Results in [facility] [address], [place] [address]. Pt wants PT at this location Referring Physician: Valentina Rudolph, Internal Medicine, Encounter Date: 10/20/2024 Results Created Date Observation Date Name Description Value Unit Range Abnormal Flag Note LastModifiedBy Organization Detail LastModifiedTime 04/02/2004/02/2023 CT, head + brain , w/o contr ast No observ ation [facility] [address] [place], [address], 04/06/2023 11:49:09 04/02/20 23 02/25/2023 CT, abdom en + pelvi s, w/o contr ast No observ ation record ed. [facility] [address], [place], [address], 04/02/2023 16:15:16 04/28/2004/26/2023 US, bladd er No observ ation record ed. [facility] (Medical Records) [address] [place], [address], 04/30/2023 10:09:10 04/28/2004/26/2023 US, thyro id No observ ation record ed. [facility] (Medical Records) [address] [place], [address], 2023 16:23:55 06/05/20 24 06/05/2024 XR, chest , 2 view No observ ation record ed. [email or web address] [place] [address] (Medical Records) [address] [place], [address], 06/06/2024 14:33:42 06/25/20 24 06/23/2024 XR, ankle , 3 or more view No observ ation record ed. [facility] (Medical Records) [address] [place], [address], 06/30/2024 10:12:20 10/25/19 25 10/19/2024 CT, chest , w/o contr ast No observ ation record ed. [facility] (Medical Records) [address] [place], [address], 10/25/2024 13:08:10 Result Notes None recorded. Problems Name Problem SNOMED Code Status Onset Date Resolution Date Notes Provider Name and Address Organization Details Recorded Time Anxiety 54170716 Active 2019 TALHA Jackson [address] [place], [address], [facility] 0 15:56:23 Acute tonsilli tis 90684246 Active 2022 PADMAJA HOLDEN [address] [place], [address], 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 3 15:18:42 Malignan t tumor of breast 869161937 Active 2022 PADMAJA HOLDEN [address] [place] [address], [address], [facility] 3 15:26:01 Fatigue 50605711 Active 2022 PADMAJA HOLDEN [address] [place] [address], [address], [facility] 3 15:26:53 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 440454778 Active 2022 monitorin g PADMAJA HOLDEN [address] [place] [address], [address], [facility] 3 13:55:30 Panic attack 389749939 Active 2022 PADMAJA HOLDEN [address] [place] [address], [address], [facility] 3 13:46:19 Headache 66520760 Active 2022 PADMAJA HOLDEN [address] [place] [address], [address], [facility] 3 16:40:11 Dysuria 45609042 Active 2022 PADMAJA HOLDEN [address] [place] [address], [address], [facility] 3 16:54:15 Hypercal cemia 75511667 Active 2022 PADMAJA HOLDEN [address] [place], [address], [facility] 3 17:01:09 Thyroid nodule 312265013 Active 2022 PADMAJA HOLDEN [address] [place], [address], [facility] 5 13:11:26 Acute conjunct ivitis 81515493 Active 2023 Felipe Torre, [address] [place], [address], [facility] 4 10:05:17 Acute bronchit is 68970361 Active 2023 PADMAJA HOLDEN [address] [place], [address], [facility] 4 12:18:06 Acute urinary tract infectio n 226484694 Active 2023 PADMAJA HOLDEN [address] [place], [address], [facility] 4 11:38:44 Pain of right ankle joint 46051604674 976820 Active 2023 PADMAJA HOLDEN [address] [place], [address], [facility] 4 11:02:01 Sprain of right ankle 14448156147 426291 Active 2023 PADMAJA HOLDEN [address] [place], [address], [facility] 4 14:20:29 Cough 38479460 Active 2024 PADMAJA HOLDEN [address] [place], [address], [facility] 5 10:51:38 Acute back pain with sciatica 427658414 Active 2024 PADMAJA HOLDEN [address] [place], [address], [place] [facility] 5 16:22:04 Bronchit is 65074615 Active 2024 PADMAJA HOLDEN [address] [place], [address], [place] [facility] 5 16:27:00 Uncompli cated mild persiste nt asthma 871893076 Active 2024 PADMAJA HOLDEN [address] [place], [address], [place] [facility] 5 16:27:28 Bilatera l pneumoni a 690161855 Active 2024 PADMAJA HOLDEN [address] [place], [address], [place] [facility] 13:08:57 Lesion of liver 515987630 Active 2024 PADMAJA HOLDEN [address] [place], [address], [facility] 13:10:16 Problem Notes None recorded. Procedures Surgical History None recorded. Imaging Results Imaging Date Name Status LastModified by Organiz ation Details LastModified Time 04/02/2023 CT, head + brain, w/o contrast completed [facility] (Medical Records) [address] [place], [address], 04/06/2023 11:49:09 02/25/2023 CT, abdomen + pelvis, w/o contrast completed [facility] [address] [place] [address], [place], [address], 04/02/2023 16:15:16 04/26/2023 US, bladder completed [facility] (Medical Records) [address] [place], [address], 04/30/2023 10:09:10 04/26/2023 US, thyroid [facility] ([facility] [address] [place], [address], 2023 16:23:55 06/05/2024 XR, chest, 2 view completed [email or web address] [facility] (Medical Records) [address] [place], [address], 06/06/2024 14:33:42 06/23/2024 XR, ankle, 3 or more view completed [facility] (Medical Records) [address] [place], [address], 06/30/2024 10:12:20 10/19/2024 CT, chest, w/o contrast completed [facility] (Medical Records) [address] [place], [address], 10/25/2024 13:08:10 Procedure Notes None recorded. Medical Equipment None Reported. Allergies Allergen ID Allergen Name Allergen Category Reaction Reaction Severity Criticality Documentation Date Start Date Code Code System Note Provider Name and Address Organization Details Recorded Time 2657 Product containin g penicilli n (product) medicatio n Not available Not available Not available 07/11/2018 11791 8001 SNOMED Kesha Abner jones [facility] 9 13:59:31 7294 clindamyc in Not available myalgias (muscle pain) Not available Not available 03/23/2023 2582 RxNorm terrie jones [facility] 16:33:21 Medications Name Sig Start Date Stop Date Status Note LastModified by Organization Details LastModified Time anastrozole 1 mg tablet 01/13 completed Not Available Not Available Not Available prednisone 10 mg tablet TAKE 4 TABS BY MOUTH X 2 DAYS 3 TABS X 2 DAYS 2 TABS X 2 DAYS 2 TABS X 1 DAYS active Not Available Not Available No t Available clindamycin HCl 300 mg capsule TAKE [...] completed Not Available Not Available Not Available levofloxaci n 500 mg tablet Take 1 tablet every 24 hours by oral route for 10 days. 2024 active Not Available Not Available Not Avai lable letrozole 2.5 mg tablet TAKE 1 TABLET BY MOUTH EVERY DAY 01/13 completed Not Available Not Available Not Available albuterol sulfate HFA 90 mcg/actuati on aerosol inhaler INHALE 2 PUFFS INTO THE LUNGS EVERY 4 HOURS FOR 30 DAYS active Not Available Not Available No t Available hydroxyzine HCl 10 mg tablet TAKE 1 TABLET 3 TIMES A DAY BY ORAL ROUTE NEEDED FOR 30 DAYS, FOR PANIC ATTACK. 2023 active Not Available Not Available Not Avai lable doxycycline hyclate 100 mg tablet Take 1 tablet twice a day by oral route for 10 days. 2024 active Not Available Not Available [...] Updated DateTime 3 167.64 cm 26.8 kg/m2 03877.3 3 g 66 /min 98 % 98 % 105 mm[Hg] 68 mm[Hg] Alyssa James [facility] 3 16:35:26 Date Recorded Body height Body mass index (BMI) Body weight Heart rate Oxygen saturation Oxygen saturation in Arterial blood by Pulse oximetry Systolic blood pressure Diastolic blood pressure Provider Name and Address Organization Details Last Updated DateTime 5 167.64 cm 26.8 kg/m2 57763.3 3 g 96 /min 98 % 98 % 128 mm[Hg] 68 mm[Hg] Diane Heart [facility] 5 15:59:15 Social History Question Answer Notes LastModified by Organizat ion Details LastModified Time Tobacco Smoking Status Never Smoker Not Available [facility] 05/07/2020 03:36:23 What Was The Date Of Your Most Recent Tobacco Screening? 03/23/2023 [email or web address] Information not available 03/23/2023 Do You Use Any Illicit Or Recreational Drugs? No [email or web address] Information not available 10/20/2024 Sex: Unknown Functional Status None recorded. Mental [...] SNOMED-CT Code Diagnosis ICD10 Code Diagnosis Note [id number] Felipe Torre [facility] [address] [facility],[place] [address] 07/11/2018 13:54:30 07/11/2018 16:11:50 Chest pain 47165221 R07.9 72197 Felipe Torre [facility] [address] [place] [address] 07/17/2019 11:24:59 07/17/2019 11:56:45 Anxiety 31650485 F41.9 Depressive disorder 3548 9007 F32.9 Adult [facility] th examination 390722375 Z00.00 Deficiency of vitamin D3 140196977 E55.9 95020 Felipe Torre [facility] [address] [place] [address] 10/10/2019 15:30:01 10/10/2019 16:17:24 Adult health examination 779027677 Z00.00 Family his tory of blood coagulation disorder 9169451937 53193 Z83.2 Menopausal syndrome 1237 61911 N95.9 taking vitamin d Anxiety 70482979 F41.9 feels stable needs refill on lorazpam 76283 Felipe Torre [facility] [address] [facility],[place] [address] 11/28/2019 08:12:43 11/28/2019 11:12:39 Headache 48102095 R51 the patient was tested negative once early in her her sickness states she is still symptomati c and continues to have symptoms including worsening sob, cough, and chest pressure will retest her for COVID to see if it comes back negative the get chest XR to see if possible pna vs viral bronchitis Cough 74807592 R05 as above Tight chest 96774563 R07 .89 as above Dyspnea on exertion 6084 5006 R06.09 as above 62102 Felipe Torre [facility] [address] [facility],[place] [address] 08/26/2020 09:47:24 08/26/2020 14:34:49 Low back pain 588660073 M54.5 will start with pain medication and XR 23810 Felipe Torre [facility] [address] [facility],[place] [address] 11/22/2020 10:33:15 11/22/2020 13:50:48 Mass of left breast 4551436938 5435251 N63.21 sent in order STAT Panic attack 419536634 F 41.0 will start on xanax given her increased anxiety over the breast lump, the patient is having a panic attack and not sleeping [id number] Felipe Torre [facility] [address] [facility] [address],[place] [address] 12/21/2022 14:42:44 12/21/2022 16:07:08 Acute tonsillitis 87725195 J03.01 will start clindamyci n presentati on of infectionu se mouth wash as well 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 will start on oral antibiotic s and mouthwash Malignant tumor of breast 300960681 C50.112 recommende d by her specialist for testing Fatigue 97946898 R53.83 agreed to full work up Family his tory of Cardiovascular disease 762237746 Z82.49 agreed to screening [id number] Felipe Torre [facility] [address] [facility],[place] [address] 01/13/2023 13:29:46 01/13/2023 15:57:28 Active or passive immunization 280062612 Z23 up-to-date Adult [facility] examination 492073136 Z00.00 BP is excellent Panic attack 898649640 F 41.0 needs refill Amygdalolith 1248181 J35 .8 will send out Malignant tumor of breast 195683413 C50.112 recommende d by her specialist for testing [id number] Felipe Torre [facility] [address] [facility],[place] [address] 03/23/2023 16:09:54 03/24/2023 09:27:35 Malignant tumor of breast 442682557 C50.112 recommende d by her specialist for testing Headache 98336557 R51.[address] up with [address] Fatigue 25821492 R53.83 will set up with lab work Dysuria 39950480 R30.0 will set up with bladder US as well for continued foam in her urine Hypercalcemia 67192221 E 83.52 will recheck levels for patient [id number] Felipe Torre [facility] [address] [facility],[place] [address] 08/03/2023 12:11:38 08/03/2023 16:35:19 Panic attack 004387457 F41.0 needs refill Malignant tumor of breast 684221913 C50.112 recommende d by her specialist for testing [id number] Felipe Torre [facility] [address] [facility], [place] [address] 06/30/2024 09:39:41 06/30/2024 14:29:52 Pain of right ankle joint 6222760875 2501129 M25.571 improving Sprain of right ankle 11 58249930 9458740 S93.431A improving [id number] Felipe Torre DO [facility] [address] [facility],[place] [address] 10/20/2024 15:38:34 10/20/2024 16:33:28 Acute back pain with sciatica 719600718 M54.41 will set up with pred for both the sciatica and the ?RAD vs asthma Bronchitis 90081593 J40 Uncomplica gaurav mild persistent asthma 740065608 J45.30 will set up with predwill let me know of a [place] [facility] Concerns Section Related Observation LastModified by Organization Detai ls LastModified Time None Recorded Concern Status LastModified by Organization Details LastModified Time None Recorded Advance Directives Directive None Recorded Payers Encounter Date Sequence Insurance Name Policy Number Policy Gonzales Covered Member ID Gonzales Member ID Guarantor Name 03/23/2023 1 [facility] INDEMNITY PLAN - [employer] [id number] 1 María Rolonndell [id number] María Kimo 08/03/2023 1 [employer] IN[employer]MNITY PL[employer] - [employer] [id number] 1 María Rolonndell [id number] María Kimo 06/30/2024 1 [facility] [employer] [id number] 1 María Rolonndell [id number] María Kimo 10/20/2024 1 [facility] INDEMNITY PLAN - [employer] [id number] 1 María Rolonndell [id number] María Kimo Notes Date Note Type Note Provider Name and Address Organization Details Recorded Time 03/23/20 23 text/htm l f/u lab work reviewed the lab work [...] be related to dehydration PADMAJA HOLDEN [address] [facility], [place], [address], [facility] 03/24/2023 09:21:12 08/03/19 24 text/htm l c/o anxiety The patient is participating in [...] how it is doing PADMAJA HOLDEN [address] [place], [address], [facility] 08/03/2023 14:55:50 06/30/20 24 text/htm l f/u ankle injury R The patient is [...] adequate rest and recovery PADMAJA HOLDEN [address] [place], [address], [facility] 06/30/2024 14:21:35 10/21/19 25 text/htm l c/o low back pain the patient reports that she is still having the cough, dry, persistantrecommended she f/u with CT and pulmthe patient was started on claritin by oncology will get me a name of a Russ Venegas sciatic nerve pain: will start on pred and refer out to PT PADMAJA HOLDEN [address] [place] [address], [place], [address], [facility] 10/20/2024 16:31:00 OBGyn Episode No OBEpisode recorded.
[2024-11-04] MEDS: gadobutroL 7.5 ML VIAL IVPUSH (19:00)
== END 2024-11-04 17:05 | disposition home or self-care (01) ==
LOC: HO.MRI 17:04
PROVIDERS: PCP Physician Assistant; Visit Provider Physician Assistant
DX: K76.9 Liver disease, unspecified (principal)
CPT/HCPCS: 74183; A9585

== ENCOUNTER → 2024-11-04 17:13 | Outpatient (BNV) | payer OTHER, SELFPAY | PROVIDERS: PCP Physician Assistant; Visit Provider Radiology Neuroradiology | DX: K76.89 Other specified diseases of liver (principal); J90 Pleural effusion, not elsewhere classified; R93.7 Abnormal findings on diagnostic imaging of other parts of musculoskeletal system | CPT/HCPCS: 74183 ==

== ENCOUNTER 2024-11-15 14:30 | Outpatient (REF) | payer OTHER, SELFPAY ==
--- NOTE | ~2024-11-15 | CT_ITS ---
CLINICAL HISTORY: PNEUMONIA CT chest without contrast Comparison: CT/SR - CT CHEST WO IV CON - 10/19/24 16:59 EDT Findings: There is a small pericardial effusion. The visualized thyroid and mediastinum are unremarkable. There are bilateral breast implants. There is a large right pleural effusion. There is an enlarging right lower lobe perihilar mass now measuring at least 5 cm in greatest diameter. The mass encases the right lower lobe bronchi. There may be superimposed pneumonia. 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 Numerous larger ill-defined lung nodules are now present throughout the right lung consistent with satellite lesions /metastatic disease. A few small nodules are also seen in the left upper lobe enlarged relative to the prior exam. Pleural/parenchymal scarring is seen in the anterior aspect of the left upper lobe possibly related to radiation treatment. Liver lesions are poorly characterized on the current examination but certainly compatible with metastasis on prior MRI. There are multiple bony metastasis with pathologic rib fractures noted. There is also a pathologic compression fracture of T12. Prior MRI demonstrated multiple bony metastasis as well. IMPRESSION: 1. Diffuse bony metastasis with pathologic fractures as above. 2. Hepatic metastasis poorly seen on this noncontrast examination. 3. Interval development of large likely malignant right pleural effusion. 4. Interval significant enlargement of right hilar mass/consolidation. 5. Fine reticular and nodular opacities primarily in the right lower lobe may indicate evidence of lymphangitic carcinomatosis. Superimposed bronchiolitis is not excluded. 6. Multiple larger irregular and somewhat ill-defined nodules throughout the right lung likely representing metastasis/satellite lesions. Their appearance suggests that they may be hemorrhagic. Septic emboli may also have this appearance. Consider obtaining a contrasted examination of the chest. This document has been electronically signed by: Allen Cruz MD on 11/16/2024 11:37:05
--- OUTSIDE RECORDS SUMMARY | 2024-11-15 14:34 | XMS_ITS | Data Portability ---
Author Organization [facility] Home Service Address [address] [place] [address] Assessment Encounter Date Assessment Date Assessment LastModified [...] Modified Time Details Appointments None recorded. Lab culture, sputum 2024 025 [email or web address] [facility], [address], [place], [address], 5 12:02:[address] referral 2024 025 [email or web address] [facility] Pulmonary Scheduling Dept, [address], [place], [address], 5 08:04:23 physical therapist referral - [facility] [address], [place] [address]. Pt wants PT at this location 2024 025 [email or web address], [address] [place] [address], [place], [address], 5 09:19:18 Procedures None recorded. Surgeries None recorded. Imaging PET-CT, whole body scan 2024 025 [facility], [address], [place], [address], 5 08:02:59 Medication Orders furosemide 20 mg tablet 2024 025 [id number], [address] [place], [address], 5 11:56:59 prednisone 10 mg tablet 2024 025 [id number] [address] [place], [address], 5 11:52:22 hydroxyzine HCl 10 mg tablet 2023 024 [id number], [address] [place], [address], 4 13:58:42 alprazolam 0.5 mg tablet 2023 024 [id number], [address] [place], [address], 4 13:58:42 Patient TargetsNo targets recorded. Patient InstructionsNo instructions recorded. Reason for Referral Physical Therapist Referral for Acute back pain with sciatica [facility] [address], [place] [address]. 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 [address] (Medical Records) [address] [place], [address], 06/06/2024 14:33:42 06/25/20 24 06/23/2024 XR, ankle , 3 or more view No observ ation record ed. [facility] (Medical Records) [address] [place], [address], 06/30/2024 10:12:20 10/25/19 25 10/19/2024 CT, chest , w/o contr ast No observ ation record ed. [facility] (Medical Records) [address] [place], [address], 10/25/2024 13:08:10 11/05/19 25 11/04/2024 MRI, liver , w/o contr ast No observ ation record ed. [facility] (Medical Records) [address] [place], [address], 11/06/2024 12:04:46 Result Notes None recorded. 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 PADMAJA HOLDEN [address] [place], [address], [facility] 3 15:18:42 Malignan t tumor of breast 905400283 Active 2022 PADMAJA HOLDEN [address] [place], [address], [facility] 3 15:26:01 Fatigue 70404359 Active 2022 PADMAJA HOLDEN [address] [place], [address], [facility] 3 15:26:53 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 481498269 Active 2022 monitorin g PADMAJA HOLDEN [address] [place], [address], [facility] 3 13:55:30 Panic attack 991905779 Active 2022 PADMAJA HOLDEN [address] [place], [address], [facility] 3 13:46:19 Headache 89142828 Active 2022 PADMAJA HOLDEN [address] [place], [address], [facility] 3 16:40:11 Dysuria 34050648 Active 2022 PADMAJA HOLDEN [address] [place], [address], [facility] 3 16:54:15 Hypercal cemia 15887358 Active 2022 PADMAJA HOLDEN [address] [place], [address], [facility] 3 17:01:09 Thyroid nodule 213695179 Active 2022 PADMAJA HOLDEN [address] [place], [address], [facility] 5 13:11:26 Acute conjunct ivitis 61431852 Active 2023 Felipe Torre DO [address] [place], [address], [facility] 4 10:05:17 Acute bronchit is 61440309 Active 2023 PADMAJA HOLDEN [address] [place], [address], [facility] 4 12:18:06 Acute urinary tract infectio n 387531693 Active 2023 PADMAJA HOLDEN [address] [place], [address], [facility] 4 11:38:44 Pain of right ankle joint 30308600818 812709 Active 2023 PADMAJA HOLDEN [address] [place], [address], [facility] 4 11:02:01 Sprain of right ankle 76917728677 737767 Active 2023 PADMAJA HOLDEN [address] [place], [address], [facility] 4 14:20:29 Cough 55069068 Active 2024 PADMAJA HOLDEN [address] [place], [address], [facility] 5 10:51:38 Acute back pain with sciatica 945680209 Active 2024 PADMAJA HOLDEN [address] [place], [address], [facility] 5 16:22:04 Bronchit is 26460004 Active 2024 PADMAJA HOLDEN [address] [place], [address], [facility] 5 16:27:00 Uncompli cated mild persiste nt asthma 207595527 Active 2024 PADMAJA HOLDEN [address] [place] [address], [address], [facility] 5 16:27:28 Bilatera l pneumoni a 630786401 Active 2024 PADMAJA HOLDEN [address] [place], [address], [facility] 13:08:57 Lesion of liver 722546883 Active 2024 PADMAJA HOLDEN [address] [place], [address], [facility] 13:10:16 Metastat ic malignan t neoplasm to liver 18488391 Active 2024 PADMAJA HOLDEN [address] [place], [address], [facility] 11:44:26 Producti ve cough 17214418 Active 2024 PADMAJA HOLDEN [address] [place], [place], , [facility] 11:47:03 Simple chronic bronchit is 14131646 Active 2024 PADMAJA HOLDEN [address] [place], [place], , [facility] 11:50:51 Pleural effusion 82992493 Active 2024 PADMAJA HOLDEN [address] [place], [place], , [facility] 11:53:41 Dyspnea 802995345 Active 2024 PADMAJA HOLDEN [address] [place], [place], , [facility] 10:54:14 Acute low back pain 900019436 Active 2024 PADMAJA HOLDEN [address] [place], [place], , [facility] 16:23:44 Problem Notes None recorded. Procedures Surgical History None recorded. Imaging Results Imaging Date Name Status LastModified by Organiz ation Details LastModified Time 06/05/2024 XR, chest, 2 view completed [address] (Medical Records) [address] [place] [address], [address], 06/06/2024 14:33:42 06/23/2024 XR, ankle, 3 or more view completed [facility] (Medical Records) [address] [place], [address], 06/30/2024 10:12:20 10/19/2024 CT, chest, w/o contrast completed [facility] (Medical Records) [address] [place], [address], 10/25/2024 13:08:10 11/04/2024 MRI, liver, w/o contrast completed [facility] (Medical Records) [address] [place], [address], 11/06/2024 12:04:46 Procedure Notes None recorded. Medical Equipment None Reported. Allergies Allergen ID Allergen Name Allergen Category Reaction Reaction Severity Criticality Documentation Date Start Date Code Code System Note Provider Name and Address Organization Details Recorded Time 2659 Product containin g penicilli n (product) medicatio n Not available Not available Not available 07/11/2018 91712 8001 SNOMED [facility] 9 13:59:31 7294 clindamyc in Not available myalgias (muscle pain) Not available Not available 03/23/2023 2582 RxNorm Jacob [facility] 3 16:33:21 Medications Name Sig Start Date Stop Date Status Note LastModified by Organization Details LastModified Time anastrozole 1 mg tablet 01/13 completed Not Available Not Available Not Available prednisone 10 mg tablet TAKE 4 TABS BY MOUTH X 2 DAYS 3 TABS X 2 DAYS 2 TABS X 2 DAYS 2 TABS X 1 DAYS 11/06 completed Not Available Not Available Not Available [...] MOUTH EVERY 12 HOURS FOR 7 DAYS 11/06 completed Not Available Not Available Not Available tramadol 50 mg tablet Take 1 tablet every 6 hours by oral route as needed for 7 days. 2024 active Not Available Not Available Not Avai lable triamcinolo ne acetonide 0.1 % topical cream [...] 3.5 mg/mL-10,00 0 unit/mL-0.1 % eye drops 11/06 completed Not Available Not Available Not Available fluoxetine 10 mg capsule TAKE 1 CAPSULE BY MOUTH EVERY DAY 01/13 completed Not Available Not Available Not Available diclofenac sodium 75 mg tablet,rissa yed release TAKE 1 TABLET TWICE A DAY BY ORAL ROUTE WITH MEALS FOR 15 DAYS. 11/22 completed Not Available Not Available Not Available furosemide 20 mg tablet TAKE 1 TABLET BY MOUTH EVERY DAY DIRECTED active Not Available Not Available No t Available levofloxaci n 500 mg tablet Take 1 tablet every 24 hours by oral route for 10 days. 11/06 completed Not Available Not Available Not Available [...] Avai lable doxycycline hyclate 100 mg tablet TAKE 1 TABLET BY MOUTH TWICE A DAY FOR 10 DAYS 11/06 completed Not Available Not Available Not Available oxycodone 5 mg tablet TAKE 1 TAB BY MOUTH EVERY 6 HOURS NEEDED MAY REQUEST PARTIAL FILL. DO NOT DRIVE OR DRINK ALCOHOL 01/13 completed Not Available Not Available Not Available chlorhexidi ne gluconate 0.12 % mouthwash Place 15 mL twice a day by mucous membrane route as needed. 11/06 completed Not Available Not Available Not Available Motrin 08/26 completed Not Available Not Available [...] Updated DateTime 5 167.64 cm 26.8 kg/m2 10461.3 3 g 96 /min 98 % 98 % 128 mm[Hg] 68 mm[Hg] [facility] 5 15:59:15 Social History Question Answer Notes LastModified by [employer] Details LastModified Time Tobacco Smoking Status Never Smoker Not Available [facility] 05/07/2020 03:36:23 What Was The Date Of Your Most Recent Tobacco Screening? 03/23/2023 [email or web address] Information not available 03/23/2023 Sex: Unknown Functional Status Question Answer Note LastModified by Organizat Sequent Details LastModified Time Do you use any illicit or recreational drugs? No [email or web address] Information not available 10/20/2024 Mental Status None recorded. Family History Relationship [...] SNOMED-CT Code Diagnosis ICD10 Code Diagnosis Note [id number] Felipe Torre [facility] [address] [facility], [place] [address] 07/11/2018 13:54:30 07/11/2018 16:11:50 Chest pain 36104792 R07.9 [id number] Felipe Torre [facility] [address] [facility], [place] [address] 07/17/2019 11:24:59 07/17/2019 11:56:45 Anxiety 80287123 F41.9 Depressive disorder 3548 9007 F32.9 Adult [facility] th examination 534212626 Z00.00 Deficiency of vitamin D3 899682061 E55.9 [id number] Felipe Torre [facility] [address] [facility], [place] [address] 10/10/2019 15:30:01 10/10/2019 16:17:24 Adult health examination 236636496 Z00.00 Family his tory of blood coagulation disorder 2882556245 65100 Z83.2 Menopausal syndrome 1237 62828 N95.9 taking vitamin d Anxiety 22053299 F41.9 feels stable needs refill on lorazpam 14432 Felipe Torre [facility] [address] [facility],[place] [address] 11/28/2019 08:12:43 11/28/2019 11:12:39 Headache 09169913 R51 the patient was tested negative once early in her her sickness states she is still symptomati c and continues to have symptoms including worsening sob, cough, and chest pressure will retest her for COVID to see if it comes back negative the get chest XR to see if possible pna vs viral bronchitis Cough 60077891 R05 as above Tight chest 07645517 R07 .89 as above Dyspnea on exertion 6084 5006 R06.09 as above [id number] Felipe Torre [facility] [address] [facility],[place] [address] 08/26/2020 09:47:24 08/26/2020 14:34:49 Low back pain 765563823 M54.5 will start with pain medication and XR [id number] Felipe Torre [facility] [address] [facility],[place] [facility] [place] [place] [address] 11/22/2020 10:33:15 11/22/2020 13:50:48 Mass of left breast 3006123000 8410069 N63.21 sent in order STAT Panic attack 212464801 F 41.0 will start on xanax given her increased anxiety over the breast lump, the patient is having a panic attack and not sleeping [id number] Felipe Torre [facility] [address] 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 .8 will start on oral antibiotic s and mouthwash Malignant tumor of breast 660615784 C50.112 recommende d by her specialist for testing Fatigue 22028273 R53.83 agreed to full work up Family his tory of Cardiovascular disease 725563623 Z82.49 agreed to screening [id number] Felipe Torre [facility] [address] [facility] [address],[place] [address] 01/13/2023 13:29:46 01/13/2023 15:57:28 Active or passive immunization 626626815 Z23 up-to-date Adult heal th examination 477177535 Z00.00 BP is excellent Panic attack 233913050 F 41.0 needs refill Amygdalolith 6332642 J35 .8 will send out Malignant tumor of breast 590467248 C50.112 recommende d by her specialist for testing [id number] Felipe Torre [facility] [address] [facility],[place] [address] 03/23/2023 16:09:54 03/24/2023 09:27:35 Malignant tumor of breast 441595423 C50.112 recommende d by her specialist for testing Headache 02121601 R51.[address] up with [address] Fatigue 08914016 R53.83 will set up with lab work Dysuria 83138299 R30.0 will set up with bladder US as well for continued foam in her urine Hypercalcemia 03366072 E 83.52 will recheck levels for patient [id number] Felipe Torre [facility] [address] [facility],[place] [address] 08/03/2023 12:11:38 08/03/2023 16:35:19 Panic attack 200804517 F41.0 needs refill Malignant tumor of breast 328936350 C50.112 recommende d by her specialist for testing [id number] [facility] [address] [facility],[place] [address] 06/30/2024 09:39:41 06/30/2024 14:29:52 Pain of right ankle joint 0328153514 9515135 M25.571 improving Sprain of right ankle 11 11706456 4182956 S93.431A improving [id number] Felipe Torre [facility] [address] [facility],[place] [address] 10/20/2024 15:38:34 10/20/2024 16:33:28 Acute back pain with sciatica 094293851 M54.41 will set up with pred for both the sciatica and the ?RAD vs asthma Bronchitis 79757647 J40 Uncomplica gaurav mild persistent asthma 745834447 J45.30 will set up with predwill let me know of a [place] [facility] [id number] DO Rhonda [facility] [address],[place] [address] 11/06/2024 11:18:57 11/06/2024 13:53:11 Malignant tumor of breast 367140741 C50.112 recommende d by her specialist for testing Metastatic malignant neoplasm to liver 50718092 C78.7 will set up with PER CT Productive cough 0880950 5 R05.8 will set up with culture sputum Simple chr onic bronchitis 10111447 J41.0 will set up with STAT pulm Pleural effusion 5964882 8 J90 will set up with diuretic Health Concerns Section Related Observation LastModified by Organization Detai ls LastModified Time None Recorded Concern Status LastModified by Organization Details LastModified Time None Recorded Advance Directives Directive None Recorded Payers Encounter Date Sequence Insurance Name Policy Number Policy Gonzales Covered Member ID Gonzales Member ID Guarantor Name 08/03/2023 1 [employer] [id number] 1 María M Kimo [id number] María Hillell 06/30/2024 1 [employer] [id number] 1 María Holloway Kimo [id number] Maríabenjamín Hillell 10/20/2024 1 [employer] [id number] 1 María Holloway Kimo [id number] María Kimo 11/06/2024 1 [facility] [employer] [id number] 1 María Holloway Kimo [id number] María Kimo Notes Date Note Type Note Provider Name and Address Organization Details Recorded Time 08/03/19 24 text/htm l c/o anxiety The [...] how it is doing PADMAJA HOLDEN [address] [place], [address], [facility] 08/03/2023 14:55:50 06/30/20 24 text/htm l f/u ankle injury R The patient is participating in this appointment via telemedicine communication with a phone call/video calling service ([employer])The patient consents to use of these platforms [...] adequate rest and recovery PADMAJA HOLDEN [address] [place], [address], [facility] 06/30/2024 14:21:35 10/21/19 25 text/htm l c/o low back pain the patient reports that she is still having the cough, dry, persistantrecommended she f/u with CT and pulmthe patient was started on claritin by oncology will get me a name of conor Venegas sciatic nerve pain: will start on pred and refer out to PT PADMAJA HOLDEN [address] [place], [address], [facility] 10/20/2024 16:31:00 11/07/19 25 text/htm l f/u review imaging the patient reports that she is feeling okay today for the most partstill has a notable dry persistant cough, though she feels the best she has felt since the coughing started the patient was diagnosed with pna on CT, with pleural effusion development right lower lobe with subsequent imaging for abnormal lesions of the liver patient has estrogen positive breast cancer which [facility] to reach out to the office for f/u given findings of probable mets in the liverno recent PET scan on file according to pt, also not recent imaging from onc to compare new PET SCAN ordered to [facility] for evaluation for any other mets MB was present during this apptgiven concerns from pt about her work place, known to have mold issues. though no specific intervention has been done to confirmhaving sputum sample given, if not taken by our office, have a STAT pulm referral placed for further eval?fungal component, can't tell on CT would need sputum and tissue samplingrecommended against anti fungal at this time given we do not know if it is fungal or what species and given the mets to her liver do not want to stress her liver failure the patient reports that she is feeling more of the upper abdominal symptomsnoticed her energy level has been decreased denies fever, chest pain, bowel changes, loss of appetite, sig weight loss will fu with pt after imagingCT will be changed to STAT for fu imaging of lungs PADMAJA HOLDEN [address] [facility], [place], [address], [facility] 11/06/2024 12:44:30 OBGyn Episode No OBEpisode recorded.
== END 2024-11-15 14:31 | disposition home or self-care (01) ==
LOC: HO.CT 14:30
PROVIDERS: PCP Physician Assistant; Visit Provider Physician Assistant
DX: J18.9 Pneumonia, unspecified organism (principal)
CPT/HCPCS: 71250

== ENCOUNTER → 2024-11-15 14:32 | Outpatient (BNV) | payer OTHER, SELFPAY | PROVIDERS: PCP Physician Assistant; Visit Provider Radiology Diagnostic Radiology | DX: C78.7 Secondary malignant neoplasm of liver and intrahepatic bile duct (principal); R91.8 Other nonspecific abnormal finding of lung field | CPT/HCPCS: 71250 ==